=== PATIENT | male | born 1990 | race Caucasian/White ===

== ENCOUNTER 2024-09-11 13:27 | Emergency (ER) | payer BC ==
[2024-09-11] MEDS ORDERED: LIDOCAINE 1% 20 ML MDV ONE (13:47)
--- NOTE | 2024-09-11 14:37 | ER ---
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 ll1 [address], no active bleeding. Coronavirus screen: Client denies travel out of the [place] in the last 14 days. At this time, the client does not indicate any symptoms associated with coronavirus-19. Ebola Screen: Patient denies travel to an Ebola-affected area in the 21 days before illness onset. Initial Sepsis Screen: Does the patient meet any 2 criteria? No. Patient's initial sepsis screen is negative. Does the patient have a suspected source of infection? No. Patient's initial sepsis screen is negative. Risk Assessment: Do you want to hurt yourself or someone else? Patient reports no desire to harm self or others. Onset of symptoms was September 11, 2024. 13:39 Method Of Arrival: Ambulatory ll1 13:39 Acuity: LYNDON 4 ll1 Triage Assessment: 13:41 General: Appears uncomfortable, Behavior is calm, cooperative, appropriate for age. ll1 Pain: Complains of pain in left hand Quality of pain is described as aching. Derm: Reports Laceration L hand 2nd digit. Historical: - Allergies: 13:39 No Known Allergies; ll1 - PMHx: 13:39 None; ll1 - PSHx: 13:39 None; ll1 - Immunization history:: Last tetanus immunization: < 5 years ago. - Social history:: Smoking status: Patient denies any tobacco usage or history of. Screenin:07 [facility] ED Fall Risk Assessment (Adult) History of falling in the last 3 months, ss including since admission No falls in past 3 months (0 pts). Abuse screen: Denies threats or abuse. Denies injuries from another. Nutritional screening: No deficits noted. Tuberculosis screening: Never had TB. Assessment: 14:07 General: Appears in no apparent distress. comfortable, Behavior is calm, cooperative. ss Pain: Complains of pain in dorsal aspect of middle phalanx of left index finger Pain currently is 7 out of 10 on a pain scale. Quality of pain is described as aching, Pain began suddenly, Is continuous. Neuro: Level of Consciousness is awake, alert, obeys commands, Oriented to person, place, time, situation. Respiratory: Airway is patent Respiratory effort is even, unlabored. EENT: Nares are clear. Derm: Skin is intact, is healthy with good turgor, Skin is pink, warm \T\ dry. normal. Vital Signs: 13:39 BP 125 / 83; Pulse 89; Resp 17; Temp 98.6; Pulse Ox 99% ; Pain 7/10; ll1 13:39 Pain Scale: Adult ll1 ED Course: 13:31 Patient arrived in ED. cj3 13:34 Mark Galloway FNP-C is PHCP. dr5 13:34 Francois Little DO is Attending Physician. dr5 13:38 Arm band placed on Patient placed in an exam room, on a stretcher. ll1 13:41 Triage completed. ll1 14:06 Rhiannon Hernandez, RN is Primary Nurse. ss 14:07 Patient has correct armband on for positive identification. Bed in low position. ss 14:55 Assist provider with laceration repair on dorsal aspect of middle phalanx of left index ss finger that was 2.5 cm. or less using sutures. Set up tray. Performed by Mark HARDIN Dressed with band aid, Patient tolerated well. Patient did not have IV access during this emergency room visit. Administered Medications: 14:07 Drug: Lidocaine Infiltration (1 %) 20 ml 20 ml Infiltration once; to bedside {Note: ss administered by VANIA Flores to wound.} Volume: 20 ml; Route: Infiltration; 14:20 CANCELLED (Inappropriate at this time): boostrix tdap0.5 ml IM once; as a single dose dr5 Medication: 14:07 VIS not applicable for this client. ss Outcome: 14:37 Discharge ordered by . dr5 14:55 Discharged to home ambulatory, ss 14:55 Condition: good 14:55 Discharge instructions given to patient, Instructed on discharge instructions, follow up and referral plans. medication usage, Demonstrated understanding of instructions, follow-up care, medications, Prescriptions given X 1, 14:56 Patient left the ED. ss Signatures: Rhiannon Hernandez, RN RN ss Renuka Shaw, IGNACIO RN ll1 Mark Galloway, CLOSING AGENT-C CLOSING AGENT-Cdr5 Malou Gonzalez cj3
--- NOTE | 2024-09-11 14:37 | EDPHYS ---
Physician Documentation [facility] Name: Jose L León Age: 33 yrs Sex: Male : 1990 Arrival Date: 09/11/2024 Time: 13:27 Bed 10 Private MD: ED Physician Francois Little HPI: 09/11 18:38 This 33 yrs old Male presents to ER via Ambulatory with complaints of Finger dr5 LAC. 18:38 Patient is a 33-year-old male with no past medical history coming in with laceration to dr5 left index finger that occurred prior to arrival with a piece of wire. Patient reports his last tetanus shot was in 2020.. Historical: - Allergies: 13:39 No Known Allergies; ll1 - PMHx: 13:39 None; ll1 - PSHx: 13:39 None; ll1 - Immunization history:: Last tetanus immunization: < 5 years ago. - Social history:: Smoking status: Patient denies any tobacco usage or history of. ROS: 18:38 Constitutional: as per hpi dr5 Exam: 18:38 Constitutional: This is a well developed, well nourished patient who is awake, alert, dr5 and in no acute distress. Head/Face: Normocephalic, atraumatic. Eyes: Pupils equal round and reactive to light, extra-ocular motions intact. Lids and lashes normal. Conjunctiva and sclera are non-icteric and not injected. Cornea within normal limits. Periorbital areas with no swelling, redness, or edema. Neck: Trachea midline, no thyromegaly or masses palpated, and no cervical lymphadenopathy. Supple, full range of motion without nuchal rigidity, or vertebral point tenderness. No Meningismus. Chest/axilla: Normal chest wall appearance and motion. Nontender with no deformity. No lesions are appreciated. Cardiovascular: Regular rate and rhythm with a normal S1 and S2. Normal PMI, no JVD. No pulse deficits. Respiratory: Lungs have equal breath sounds bilaterally, clear to auscultation. No rales, rhonchi or wheezes noted. No increased work of breathing, no retractions or nasal flaring. Back: No spinal tenderness. No costovertebral tenderness. Full range of motion. MS/ Extremity: Pulses equal, no cyanosis. Neurovascular intact. Full, normal range of motion. Neuro: Awake and alert, GCS 15, oriented to person, place, time, and situation. Cranial nerves II-XII grossly intact. Motor strength 5/5 in all extremities. Sensory grossly intact. Cerebellar exam normal. Normal gait. 18:38 Skin: Appearance: normal except for affected area, injury, laceration(s), the wound is approximately 2 cm(s), with a depth of 1 cm(s), of the palmar aspect of proximal phalanx of left index finger, Vital Signs: 13:39 BP 125 / 83; Pulse 89; Resp 17; Temp 98.6; Pulse Ox 99% ; Pain 7/10; ll1 13:39 Pain Scale: Adult ll1 Laceration: 18:38 Wound Repair of 2cm ( 0.8in ) subcutaneous laceration to palmar aspect of proximal dr5 phalanx of left index finger. Linear shaped.. Distal neuro/vascular/tendon intact. Anesthesia: Regional Block with 3 mls of 1% lidocaine. Wound prep: Moderate cleansing. Skin closed with 3 4-0 Prolene using simple sutures and sterile technique. Dressed with non-adherent dressing. Patient tolerated well. MDM: 13:34 Medical Screening Exam initiated dr5 18:38 Differential diagnosis: Strain, Laceration, Sprain. Data reviewed: vital signs, nurses dr5 notes. I considered the following discharge prescriptions or medication management in the emergency department Medications were administered in the Emergency Department. See MAR. Care significantly affected by the following Social Determinants of Health: Poor access to healthcare and/or lack of insurance, Poor access to transportation, Problems related to employment. Counseling: I had a detailed discussion with the patient and/or guardian regarding the historical points, exam findings, and any diagnostic results supporting the discharge/admit diagnosis, the presence of at least one elevated blood pressure reading (>120/80) during this emergency department visit, the need for outpatient follow up, for definitive care, a family practitioner, to return to the emergency department if symptoms worsen or persist or if there are any questions or concerns that arise at home. ED course: Laceration repair went without any issues. Recommended patient follow-up in 7 days for suture removal with us or primary care doctor. Keep wound clean and dry.. 18:41 ED course: Offered patient tetanus shot but patient refused and states he does not want dr5 one. Keflex given to prevent infection.. 09/11 13:47 Order name: Dressing - Wound; Complete Time: 14:06 dr5 09/11 13:47 Order name: Prolene, Sutures; Complete Time: 14:06 dr5 09/11 13:47 Order name: Setup Suture Tray; Complete Time: 14:06 dr5 Administered Medications: 14:07 Drug: Lidocaine Infiltration (1 %) 20 ml 20 ml Infiltration once; to bedside {Note: ss administered by VANIA Flores to wound.} Volume: 20 ml; Route: Infiltration; 14:20 CANCELLED (Inappropriate at this time): boostrix tdap0.5 ml IM once; as a single dose dr5 Disposition: 20: I was immediately available on-site in the Emergency Department for consultation in the ms3 care of the patient. . Disposition Summary: 09/11/24 14:37 Discharge Ordered Notes: Location: Home dr5 Condition: Stable dr5 Diagnosis - Laceration without foreign body of left index finger without damage to nail dr5 Followup: dr5 - With: Emergency Department - When: 7 - 10 days - Reason: Staple/Suture removal Followup: dr5 - With: Private Physician - When: 7 - 10 days - Reason: Staple/Suture removal Discharge Instructions: - Discharge Summary Sheet dr5 - Laceration Care, Adult dr5 Forms: - Medication Reconciliation Form dr5 - Antibiotic Education dr5 - Patient Portal Instructions dr5 - Leadership Thank You Letter dr5 Prescriptions: - Cephalexin 500 mg Oral capsule - take 1 capsule ORAL route every 12 hours for 7 days; 14 capsule; Refills: 0, dr5 Product Selection Permitted Signatures: Rhiannon Hernandez RN RN Renuka Shaw RN RN 1 Francois Little, DO ms3 Mark Galloway FNP-C PRIZE JACKER-Cdr5 Corrections: (The following items were deleted from the chart) 14:20 14:17 Boostrix Tdap IM 0.5 ml IM once; as a single dose ordered. dr5 dr5
[2024-09-11 15:00] VITALS: BP 125/83; TEMP 98.6; O2SAT 99
== END 2024-09-11 14:56 | disposition home or self-care (01) ==
LOC: ER 13:27
DX: S61.211A Laceration without foreign body of left index finger without damage to nail, initial encounter (principal)
CPT/HCPCS: 12001; 99283; J2003